=== PATIENT | male | born 1970 ===

== ENCOUNTER 2020-02-27 08:13 | Outpatient (CLI) | payer OTHER ==
[~2020-02-27 08:13] MED LIST: CIPRODEX OTIC7.5 ML OT; LEVAQUIN750 MG PO
== END 2020-02-27 12:52 | disposition home or self-care (01) ==
LOC: OFIC 805 08:13
PROVIDERS: ATTEND Otolaryngology
DX: H60.8X2 Other otitis externa, left ear (principal); H66.42 Suppurative otitis media, unspecified, left ear; H61.22 Impacted cerumen, left ear

== ENCOUNTER 2020-02-27 11:30 | Outpatient (CLI) | payer OTHER | END 2020-02-27 11:41 | disposition home or self-care (01) | LOC: LAB 11:30 | PROVIDERS: ATTEND Otolaryngology | DX: H60.02 Abscess of left external ear (principal) ==

== ENCOUNTER 2020-03-02 10:01 | Outpatient (CLI) | payer OTHER ==
[~2020-03-02] VITALS: Ht 152.4 cm; Wt 106.1 kg
[2020-03-02] MEDS ORDERED: CIPRODEX OTIC7.5 ML OT (10:39)
== END 2020-03-02 10:53 | disposition home or self-care (01) ==
LOC: OFIC 805 10:01
PROVIDERS: ATTEND Otolaryngology
DX: H60.8X2 Other otitis externa, left ear (principal); H66.42 Suppurative otitis media, unspecified, left ear; H61.22 Impacted cerumen, left ear

== ENCOUNTER 2023-04-27 08:15 | Day surgery (SDC) | payer OTHER ==
[2023-04-27] MEDS ORDERED: TYLENOL ARTHRI650 MG PO (11:40)
[2023-04-27] MEDS ORDERED: MIRALAX17 GM PO (11:40)
[2023-04-27] MEDS ORDERED: NEURONTIN300 MG PO (11:40)
[2023-04-27] MEDS ORDERED: TRAMADOL HCL50 MG PO (11:40)
== END 2023-04-27 15:35 | disposition home or self-care (01) ==
LOC: CIR.AMB 08:15
PROVIDERS: ATTEND Surgery
DX: K42.0 Umbilical hernia with obstruction, without gangrene (principal); I10 Essential (primary) hypertension; Z20.822 Contact with and (suspected) exposure to COVID-19
CPT/HCPCS: 49594; C1781